=== PATIENT | male | born 1985 | race Two or more races ===

== ENCOUNTER 2024-08-12 00:57 | Emergency (ER) | payer MEDICAID, OTHER ==
[~2024-08-12] VITALS: Ht 162.6 cm; Wt 72.6 kg
[2024-08-12] MEDS: LIDOCAINE 1% HCL (LOCAL ANESTH.) INJ 20ML MDV ID ONE (01:00)
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
[2024-08-12 04:35] VITALS: BP 141/87; TEMP 98.4
[2024-08-12 04:37] VITALS: PULSE 102; RESP 18; O2SAT 96
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
== END 2024-08-12 05:13 | disposition home or self-care (01) ==
LOC: EDBD 00:57 → ER 00:57
DX: S01.81XA Laceration without foreign body of other part of head, initial encounter (principal); Y04.2XXA Assault by strike against or bumped into by another person, initial encounter; Y93.89 Activity, other specified; Y92.89 Other specified places as the place of occurrence of the external cause; Y99.8 Other external cause status
CPT/HCPCS: 12013; 70450; 99284; J2003